=== PATIENT | male | born 1970 | race Caucasian/White ===

== ENCOUNTER 2019-06-07 14:45 | Outpatient (CLI) | payer OTHER ==
--- NOTE | 2019-06-07 16:17 | MRI ---
MRI lumbar spine noncontrast HISTORY: Low back pain. Left leg radiculopathy. FINDINGS: Transitional vertebra at the lumbosacral junction will be designated as the first sacral le paul, with remainder of the vertebra number accordingly. Conus medullaris terminates at the T12-L1 level. Vertebral body heights and alignment are maintained. Degenerative discogenic endplate changes within the bone marrow. Hemangioma within the T12 vertebral body. There is desiccation of all intervertebral discs. T12-L1: Mild osteophytosis. Central canal and neural foramina are patent. L1-2: Mild posterior disc bulge. Disc space narrowing. Circumferential degenerative changes. Mild sol nosis of the central canal. Moderate stenosis of each neural foramen. L2-3: Disc space narrowing. Mild focal protrusion just to the left of midline with effacement of the left ventral aspect of the thecal sac. Posterior disc bulge and circumferential degenerative changes. Moderate stenosis of the central canal. Mild stenosis of each neural foramen. L3-4: Mild posterior disc bulge. Circumferential degenerative changes. Mild stenosis of the central c anal and each neural foramen. L4-5: Prominent diffuse posterior disc protrusion with inferior extension. Marked compression of the thecal sac and cauda equina. Complete effacement of the thecal sac. Prominent posterior degenerative changes. Moderate bilateral foraminal stenoses. L5-S1: Left posterolateral disc protrusion effaces the left ventral aspect of the thecal sac and comp resses the origin of the left S1 nerve root. Posterior degenerative changes are present. Mild stenosis of the thecal sac. Moderate right and severe left foraminal stenoses. IMPRESSION : Degenerative changes most severe at the L4-5 level where there is complete compression and effacement of the thecal sac and cauda equina. Please consider neurosurgical evaluation. Other multilevel degenerative changes throughout the lumbar spine as detailed above.
== END 2019-06-07 14:46 | disposition home or self-care (01) ==
LOC: BICMRI 14:45
PROVIDERS: ATTEND Family Medicine
DX: M47.26 Other spondylosis with radiculopathy, lumbar region (principal); M54.32 Sciatica, left side; M47.817 Spondylosis without myelopathy or radiculopathy, lumbosacral region
CPT/HCPCS: 72148

== ENCOUNTER 2019-08-02 07:00 | Outpatient (CLI) | payer OTHER ==
[2019-08-03 10:58] LABS: SARS-CoV-2 MS2 Positive; SARS-CoV-2 N Gene Negative; SARS-CoV-2 S Gene Negative; SARS-CoV-2 orf1ab Negative
== END 2019-08-02 07:01 | disposition home or self-care (01) ==
LOC: LABBT 07:00
PROVIDERS: ATTEND Neurological Surgery
DX: Z01.812 Encounter for preprocedural laboratory examination (principal); Z11.59 Encounter for screening for other viral diseases; M54.16 Radiculopathy, lumbar region
CPT/HCPCS: 87635; U0003

== ENCOUNTER 2019-08-04 06:14 | Day surgery (SDC) | payer OTHER ==
[2019-08-02 15:48] VITALS: BMI 35.9
--- NOTE | 2019-08-04 06:21 | HP ---
This is Rkiy Cintron PA-C dictating a report for Boyd Wakefield MD. HISTORY: Mr. Garcia is a pleasant 48-year-old man, known to our practice for lumbar decompression in 2012, who returns now with 6 months worth of increasing lower back pain that back in May became profound. He has severe radicular pain to the left lower extremity that fits in L5 pattern, but then suddenly this abated. As of today, he has no pain, however, he does have footdrop on the left times 1-1/2 months when this initially occurred. He wears an ankle-foot orthosis at all times to prevent further injury. He started physical therapy 2 weeks ago and is continuing this. MRI from [place] reveals severe central canal stenosis at L4-5 secondary to degenerative facet disease and superimposed disk herniation at L4 with extruded along the tract of the left descending L5 nerve root. I feel that this is most certainly the culprit. He is about having surgery again, although understanding the severity of his problem is deferred because of visit. PAST MEDICAL HISTORY: No major medical problems. CURRENT MEDICATIONS: None. ALLERGIES: TO KEFLEX. PAST SURGICAL HISTORY: Lumbar decompression. ASSESSMENT: Lumbar spinal stenosis with footdrop. PLAN: Dr. Wakefield met with the patient, reviewed imaging, advocated for reoperation of L5 decompression with diskectomy. He explained to the patient risks, benefits, and alternatives to the procedure. The patient expressed understanding and elected to move forward with surgery as discussed. I do believe the patient is mentally competent and capable of making medical decisions for himself. We will move forward with surgery as planned. Job ID: [id number]
[2019-08-04] MEDS ORDERED: Levofloxacin 500 mg/D5W 100 ml Premix Bag ONE (07:09)
[2019-08-04] MEDS ORDERED: Clindamycin/D5W 900 mg/50 ml Premix Bag ONE (07:09)
[2019-08-04] MEDS ORDERED: Bupivacaine PF 0.5% 30 ML VIAL ONE (07:53)
[2019-08-04] MEDS ORDERED: EPINEPHrine 1 MG/ML AMP ONE (07:53)
[2019-08-04] MEDS ORDERED: Thrombin 5000 UNITS/5 ML VIAL ONE (07:53)
[2019-08-04] MEDS ORDERED: Fentanyl 100 MCG/2 ML VIAL ONE ×3 (08:26→10:40)
[2019-08-04] MEDS ORDERED: Tamsulosin HCl 0.4 MG CAP ONE (10:40)
[2019-08-04] MEDS ORDERED: Ondansetron ODT 4 MG TAB ONE (12:57)
[2019-08-04] MEDS ORDERED: Dexamethasone 20 MG/5 ML VIAL ONE (15:26)
[2019-08-04] MEDS ORDERED: Rocuronium Bromide 10 MG/ML (10ML VIAL) ONE (15:26)
[2019-08-04] MEDS ORDERED: EPHEDRINE 25 MG/5 ML SYRINGE ONE (15:26)
[2019-08-04] MEDS ORDERED: PHENYLEPHRINE-NS 100 MCG/ML 10 ML SYRINGE ONE (15:26)
[2019-08-04] MEDS ORDERED: PROPOFOL 200 MG/20 ML VIAL ONE (15:26)
[2019-08-04] MEDS ORDERED: Lidocaine 1% PF 5 ML VIAL ONE (15:26)
[2019-08-04] MEDS ORDERED: Ondansetron PF 4 MG/2 ML Vial ONE (15:26)
[2019-08-04] MEDS ORDERED: Glycopyrrolate 0.2 MG/ML 5 ML SYRINGE ONE (15:26)
--- NOTE | 2019-08-04 16:09 | OP ---
DATE OF PROCEDURE: 08/04/2019 DEPENDENCY DIRECTOR: Riky Cintron PA-C INDICATION: Pain. DIAGNOSIS: Lumbar disk herniation with lumbar radiculopathy. PROCEDURE PERFORMED: Reoperation of L3-L4 decompression and L3-L4 diskectomy. ANESTHESIA: General. DESCRIPTION OF PROCEDURE: The patient was brought into the operating room and placed under general anesthesia. He was flipped from the supine to prone position on the operating room table. A linear incision was planned over the L3-L4 segment. This encompassed area of a prior incision. After prepping and draping and after an appropriate preoperative pause, the incision was created. The soft tissues were swept away from midline. A self-retaining retractor was placed. The C-arm images were obtained to confirm the appropriate level. Bone defects and scar tissue were present from the patient's prior operation, which increased surgical time. The laminectomy was performed along L3-L4 centrally. The lateral recesses were decompressed on the left. The L4 pedicle was identified as was medial to the pedicle, inferiorly migrated disk from L3. This was removed until the nerve root exiting and descending was decompressed. The wound was then irrigated. Hemostasis was maintained throughout. The wound was then closed in anatomic layers and a pressure dressing was applied. There were no known procedural complications. Job ID: [id number]
== END 2019-08-04 13:11 | disposition home or self-care (01) ==
LOC: SDC 06:14
PROVIDERS: ATTEND Neurological Surgery
PROC: 01NB0ZZ Release Lumbar Nerve, Open Approach (ICD-10-PCS; principal; 2019-08-04)
DX: M51.16 Intervertebral disc disorders with radiculopathy, lumbar region (principal); M48.061 Spinal stenosis, lumbar region without neurogenic claudication; M21.372 Foot drop, left foot; Z88.1 Allergy status to other antibiotic agents
CPT/HCPCS: 76000; 93005; 93010; J0171; J1100; J1956; J2001; J2405; J2704; J3010; J3490; Q0162; S0020

== ENCOUNTER 2022-05-18 17:32 | Emergency (ER) | payer BC ==
[~2022-05-18 17:32] MED LIST: Iopamidol-370 76% 500 ML 1 ML ONE
[2022-05-18 18:30] LABS: Hemoglobin 14.9 g/dL (14.0-18.0); Mean Corpuscular HGB CONC 31.7 g/dL (32.0-36.0); Mean Corpuscular Hemoglobin 29.3 pg (27.0-31.0); Mean Corpuscular Volume 92.4 fl (78.0-98.0); Mean Platelet Volume 7.9 fL (7.4-10.4); Platelet Count 267 10x3/uL (130-400); RBC Distribution Width 12.9 % (11.5-14.5); Red Blood Cell (RBC) Count 5.09 mill/uL (4.70-6.10); White Blood Cell (WBC) Count 36.5 10x3/uL (4.8-10.8)
[2022-05-18 18:50] LABS: Band 4 % (5-11); Eosinophils 17 % (0-10); Lymphocytes 8 % (21-51); MDiff Complete? YES; Monocytes 5 % (0-10); Neutrophil 66 % (42-75); Platelet Morphology Comment Appears Adequate; RBC Morphology Normal
[2022-05-18] MEDS ORDERED: Morphine 4 MG/ML VIAL ONE (20:06)
[2022-05-18 21:45] LABS: ALT (SGPT) 64 U/L (8-55); AST (SGOT) 57 U/L (5-34); Albumin 3.8 g/dL (3.5-5.0); Alkaline Phosphatase 327 U/L (40-110); Anion Gap 22 mmol/L (10-20); BUN (Urea Nitrogen) 24 mg/dL (8.9-20.6); Bilirubin, Total 0.9 mg/dL (0.2-1.2); Calc. Creatinine Clearance 0 mL/min (70-130); Calcium 10.7 mg/dL (7.8-10.44); Carbon Dioxide 21 mmol/L (22-29); Chloride 98 mmol/L (98-107); Estimated GFR 66; Globulin 3.6 g/dL (2.4-3.5); Glucose 103 mg/dL (70-105); Lipase 74 U/L (8-78); Potassium 4.5 mmol/L (3.5-5.1); Protein, Total 7.4 g/dL (6.0-8.3); Sodium 136 mmol/L (136-145)
== END 2022-05-18 20:26 | disposition home or self-care (01) ==
LOC: ERS 17:32
DX: C22.0 Liver cell carcinoma (principal)
CPT/HCPCS: 71260; 74177; 76705; 80053; 83605; 83690; 85025; 93005; 96374; J2270; Q9967